=== PATIENT | male | born 1985 | race Caucasian/White ===

== ENCOUNTER 2023-11-06 16:56 | Emergency (ER) | payer MEDICARE, MEDICAID ==
[~2023-11-06 16:56] MED LIST: Ciprofloxacin 0.3% Ophth Soln 2.5 ML Bottle ONE
[2023-11-06] MEDS: Tetracaine HCl/PF 0.5% 4 ML Bottle EYERT ONE (17:12)
[2023-11-06] MEDS: Diphtheria,Pertussis(Acell),Tetanus Vaccine 0.5 ML Syringe IM ONE (17:42)
== END 2023-11-06 17:54 | disposition home or self-care (01) ==
LOC: LB.ED 16:56
DX: T15.01XA Foreign body in cornea, right eye, initial encounter (principal); I50.9 Heart failure, unspecified; E66.9 Obesity, unspecified; Z23 Encounter for immunization; Z79.899 Other long term (current) drug therapy; Z86.19 Personal history of other infectious and parasitic diseases; Z90.49 Acquired absence of other specified parts of digestive tract; Z68.31 Body mass index [BMI] 31.0-31.9, adult
CPT/HCPCS: 65220; 90471; 90715; 99283-25; A9270-GY

== ENCOUNTER 2024-05-19 13:49 | Emergency (ER) | payer MEDICARE, MEDICAID ==
[2024-05-19] MEDS ORDERED: Sodium Chloride 0.9% 10 ML Syringe FLUSH PRN (14:07)
[2024-05-19] MEDS ORDERED: Morphine 4 MG/ML VIAL IVPUSH ONE (14:13)
[2024-05-19] MEDS ORDERED: Sodium Chloride 0.9% 1,000 ML IV SCH (14:15)
[2024-05-19] MEDS: HYDROmorphone 2 MG/ML Syringe IVPUSH ONE ×2 (14:46→16:56)
[2024-05-19] MEDS: HYDROmorphone 2 MG/ML Syringe ONE ×2 (14:47→18:37)
[2024-05-19 15:04] LABS: HEMATOCRIT 37.4 % (40.0-54.0); HEMOGLOBIN 12.1 g/dL (13.0-18.0); MEAN CORPUSCULAR HEMOGLOBIN 29.2 pg (27.0-32.0); MEAN CORPUSCULAR HGB CONC 32.4 g/dL (31.0-35.0); MEAN PLATELET VOLUME 9.6 fL (6.0-10.0); RED BLOOD CELL COUNT 4.15 M/uL (4.50-6.50); RED CELL DISTRIBUTION WIDTH 15.3 % (11.0-16.0); WHITE BLOOD CELL COUNT,WBC 19.9 K/uL (4.0-11.0)
[2024-05-19 15:21] LABS: INR 2.4 (1.0-3.5)
[2024-05-19 15:23] LABS: PROTHROMBIN TIME 23.3 sec (9.0-11.5)
[2024-05-19 16:28] LABS: ANION GAP 17.6 mmol/L (5.0-15.0); CALCIUM 9.4 mg/dL (8.5-10.1); CREATININE 0.84 mg/dL (0.70-1.30); EST CRCL DRUG DOSING (CG) 138.32 mL/min; MAGNESIUM 1.9 mg/dL (1.8-2.4)
[2024-05-19 16:31] LABS: POTASSIUM,K 5.6 mmol/L (3.5-5.1)
[2024-05-19] MEDS: Factor IX Complex Human 500 UNIT VIAL IV SCH (16:59)
[2024-05-19 19:05] VITALS: BP 100/82; PULSE 90
== END 2024-05-19 18:10 ==
LOC: LB.ED 13:49
DX: I62.9 Nontraumatic intracranial hemorrhage, unspecified (principal); H53.461 Homonymous bilateral field defects, right side; I50.9 Heart failure, unspecified; E66.9 Obesity, unspecified; Z68.31 Body mass index [BMI] 31.0-31.9, adult; Z79.899 Other long term (current) drug therapy; Z79.01 Long term (current) use of anticoagulants
CPT/HCPCS: 36415; 70450; 80048; 83735; 85027; 85610; 96365; 96372; 96375; 96376; 99285-25; J1171; J3430; J7168

== ENCOUNTER 2024-07-25 12:51 | Emergency (ER) | payer MEDICARE, MEDICAID ==
[2024-07-25 13:59] LABS: BASOPHILS ABSOLUTE AUTO 0.03 K/uL (0.02-0.10); BASOPHILS PERCENT AUTO 0.3 % (0.0-0.5); EOSINOPHILS ABSOLUTE AUTO 0.03 K/uL (0.04-0.40); EOSINOPHILS PERCENT AUTO 0.3 % (1.0-5.0); HEMATOCRIT 25.2 % (40.0-54.0); HEMOGLOBIN 7.5 g/dL (13.0-18.0); LYMPHOCYTES ABSOLUTE AUTO 0.64 K/uL (1.50-4.00); LYMPHOCYTES PERCENT AUTO 6.1 % (20.0-40.0); MEAN CORPUSCULAR HEMOGLOBIN 30.5 pg (27.0-32.0); MEAN CORPUSCULAR HGB CONC 29.8 g/dL (31.0-35.0); MEAN CORPUSCULAR VOLUME 102 fL (76-96); MEAN PLATELET VOLUME 9.9 fL (6.0-10.0); MONOCYTES ABSOLUTE AUTO 0.59 K/uL (0.20-0.80); MONOCYTES PERCENT AUTO 5.7 % (3.0-10.0); NEUTROPHILS ABSOLUTE AUTO 9.13 K/uL (2.00-7.50); NEUTROPHILS PERCENT AUTO 87.6 % (45.0-70.0); PLATELET COUNT,PLT 328 K/uL (150-400); RED BLOOD CELL COUNT 2.46 M/uL (4.50-6.50); RED CELL DISTRIBUTION WIDTH 15.1 % (11.0-16.0); WHITE BLOOD CELL COUNT,WBC 10.4 K/uL (4.0-11.0)
[2024-07-25] MEDS: Lactated Ringers 1,000 ML IV SCH (14:08)
[2024-07-25 14:17] LABS: A/G RATIO 0.7 (0.8-2.0); ALBUMIN 3.2 g/dL (3.4-5.0); ANION GAP 13.3 mmol/L (5.0-15.0); BUN/CREATININE RATIO 11.5 (6-25); CALCIUM 8.9 mg/dL (8.5-10.1); CARBON DIOXIDE,CO2 25.2 mmol/L (21.0-32.0); CREATININE 1.82 mg/dL (0.70-1.30); EST CRCL DRUG DOSING (CG) 63.84 mL/min; POTASSIUM,K 5.5 mmol/L (3.5-5.1); PROTEIN TOTAL,TP 7.6 g/dL (6.4-8.2)
[2024-07-25] MEDS ORDERED: Norepinephrine 4 MG in Dextrose 5% in Water 246 ML IV SCH (15:15)
[2024-07-25] MEDS: Ondansetron 4 MG/2 ML SDV IVPUSH ONE (15:21)
[2024-07-25] MEDS: HYDROmorphone 1 MG/ML Syringe IVPUSH ONE (15:27)
[2024-07-25] MEDS: HYDROmorphone 2 MG/ML Syringe ONE (15:36)
[2024-07-25] MEDS: Norepinephrine Bit/0.9 % NaCl 4 MG in Premix Bag 1 BAG IV SCH (15:38)
[2024-07-25 15:41] LABS: INFLUENZA A NAA NEGATIVE (NEGATIVE); INFLUENZA B NAA NEGATIVE (NEGATIVE); RESPIRATORY SYNCYTIAL VIR NAA NEGATIVE (NEGATIVE)
[2024-07-25 15:46] LABS: CORONAVIRUS COVID-19 NAA NEGATIVE (NEGATIVE)
[2024-07-25] MEDS: HYDROmorphone 1 MG/ML Syringe IM ONE (20:10)
[2024-07-26] MEDS: Piperacillin/Tazobactam 4.5 GM in Sodium Chloride 0.9% 100 ML IV ONE (00:37)
[2024-07-26] MEDS: HYDROmorphone 2 MG/ML Syringe ONE (00:45)
[2024-07-26] MEDS: VANCOmycin 1.5 GM/300 ML 1.5 GM in Premix Bag 1 BAG IV ONE (00:48)
== END 2024-07-25 20:23 ==
LOC: LB.ED 12:51
DX: I95.9 Hypotension, unspecified (principal); I50.9 Heart failure, unspecified; E66.9 Obesity, unspecified; Z68.28 Body mass index [BMI] 28.0-28.9, adult; Z90.49 Acquired absence of other specified parts of digestive tract; Z79.899 Other long term (current) drug therapy
CPT/HCPCS: 0241U; 36415; 70450; 70486; 71045; 73110-LT; 80053; 85025; 85651; 86140; 86850; 86900; 86901; 87040; 96361; 96365; 96366; 96372; 96375; 99285-25; J1171; J2405; J7120

== ENCOUNTER 2024-09-12 16:22 | Emergency (ER) | payer MEDICARE, MEDICAID ==
[2024-09-12] MEDS ORDERED: Sodium Chloride 0.9% 10 ML Syringe FLUSH PRN (17:06)
[2024-09-12 18:32] LABS: HEMATOCRIT 22.1 % (40.0-54.0); MEAN CORPUSCULAR HEMOGLOBIN 24.7 pg (27.0-32.0); MEAN CORPUSCULAR HGB CONC 27.6 g/dL (31.0-35.0); MEAN PLATELET VOLUME 10.6 fL (6.0-10.0); RED BLOOD CELL COUNT 2.47 M/uL (4.50-6.50); RED CELL DISTRIBUTION WIDTH 17.8 % (11.0-16.0)
[2024-09-12] MEDS: Sodium Chloride 0.9% 1,000 ML IV SCH (18:40)
[2024-09-12 18:43] LABS: HEMOGLOBIN 6.1 g/dL (13.0-18.0)
[2024-09-12 18:51] LABS: A/G RATIO 0.7 (0.8-2.0); ALBUMIN 2.9 g/dL (3.4-5.0); ANION GAP 13.2 mmol/L (5.0-15.0); BILIRUBIN TOTAL 1.1 mg/dL (0.0-1.0); BUN/CREATININE RATIO 13.7 (6-25); CALCIUM 8.5 mg/dL (8.5-10.1); CREATININE 1.39 mg/dL (0.70-1.30); EST CRCL DRUG DOSING (CG) 83.59 mL/min; POTASSIUM,K 4.2 mmol/L (3.5-5.1); PROTEIN TOTAL,TP 7.3 g/dL (6.4-8.2)
[2024-09-12 19:23] LABS: APPEARANCE,URINE CLOUDY (CLEAR); COLOR,URINE OTHER; GLUCOSE,URINE >=1000 mg/dL (NEGATIVE); KETONES,URINE TRACE mg/dL (NEGATIVE); PH,URINE 5.5 (5.0-8.0); PROTEIN,URINE 100 mg/dL (NEGATIVE)
[2024-09-12 19:24] LABS: BILIRUBIN,URINE SMALL (NEGATIVE); LEUKOCYTE ESTERASE,URINE NEGATIVE (NEGATIVE); NITRITE,URINE POSITIVE (NEGATIVE); OCCULT BLOOD,URINE MODERATE (NEGATIVE); UROBILINOGEN,URINE 0.2 E.U./dL (0.2-1.0)
[2024-09-12 19:25] LABS: BACTERIA,URINE FEW /HPF; RBC,URINE 0-5 /HPF; WBC,URINE 0-5 /HPF
[2024-09-12 19:26] LABS: AMORPHOUS SEDIMENT,URINE MODERATE /HPF
[2024-09-12] MEDS: HYDROmorphone 1 MG/ML Syringe IVPUSH ONE (20:52)
[2024-09-12] MEDS: HYDROmorphone 2 MG/ML Syringe ONE (20:56)
[2024-09-13] MEDS: HYDROmorphone 2 MG/ML Syringe IVPUSH ONE ×2 (04:40→08:24)
[2024-09-13] MEDS: HYDROmorphone 2 MG/ML Syringe ONE (11:28)
== END 2024-09-13 10:00 ==
LOC: SUPCPDRO 16:22 → LB.ED 16:22
DX: D64.9 Anemia, unspecified (principal); Z79.01 Long term (current) use of anticoagulants; E66.9 Obesity, unspecified; Z79.899 Other long term (current) drug therapy; Z87.891 Personal history of nicotine dependence; Z68.28 Body mass index [BMI] 28.0-28.9, adult
CPT/HCPCS: 36415; 36430; 80053; 81001; 85018; 85027; 86850; 86900; 86901; 86920; 86922; 87086; 96361; 96374; 96376; 99284; 99284-25; J1171; P9016